=== PATIENT | male | born 1990 ===

== ENCOUNTER 2024-05-10 23:43 | Emergency (ER) | payer OTHER, SELFPAY ==
[2024-05-10 23:48] VITALS: BP 146/78; PULSE 84; RESP 16; TEMP 36.2; O2SAT 99; BMI 26.5
--- NOTE | 2024-05-11 00:50 | ED.WEAKNESS ---
HPI - Weakness General Date Seen: 05/11/24 Chief complaint: Weakness Stated complaint: weakness Time Seen by Provider: 05/11/24 00:00 Source: patient Mode of arrival: ambulatory Limitations: no limitations History of Present Illness HPI Narrative: Patient is a 33-year-old male with a history of breast cancer that is in remission presenting to the emergency department for multiple complaints. He states he was concerned because he was feeling weak this evening and took his temperature multiple times and noticed every time it was in the 95 range. He used 3 different thermometers. After this is when he was started noticing he was feeling weak. He thinks his symptoms are starting to improve at this time. Denies symptoms like this before. Also states she is very susceptible to heat exhaustion and was feeling like he was dehydrated. He was on the way to get Pedialyte when he is feeling weaker so he decided to come to the emergency department instead. Is also complaining about neck pain that started this evening when he was carrying a Dehumidifier. Denies chest pain, shortness of breath, abdominal pain, headache, vision changes, numbness, diarrhea, constipation. Related Data Home Medications ?Medication ?Instructions ?Recorded ?Confirmed dextroamphetamine-amphetamine 30 60 mg feeding tube DAILY 05/10/24 05/10/24 mg tablet (Adderall) Allergies Allergy/AdvReac Type Severity Reaction Status Date / Time No Known Drug Allergies Allergy Verified 05/10/24 23:54 Review of Systems Status of ROS: Reports: 10 or more systems reviewed and unremarkable except as noted in History and below Exam Narrative: Exam Narrative: Const: Well-nourished, Well-developed, in mild distress Eyes: PERRL, no conjunctival injection, and symmetrical lids HENT: Atraumatic external nose and ears. Moist mucous membranes. Neck: Symmetric, trachea midline, No thyromegaly. CVS: RRR, No murmurs or gallops. Peripheral pulses 2+ and equal in all extremities RESP: Unlabored respiratory effort. Clear to auscultation bilaterally. GI: Nontender/Nondistended, No rebound or guarding. MSK:Extremities w/o deformity, Normal Active ROM Skin: Warm, Dry. No rashes or lesions. Neuro: Normal Muscle tone, No focal neurological deficits. Psych: Awake, Alert, & Oriented x3. Appropriate mood and affect. Const: Vital Signs, click to edit/add: Vital Signs - 24 hr 05/10/24 23:48 Temperature 97.2 F L Pulse Rate [Left P ulse Oximeter] 84 Respiratory Rate 16 Blood Pressure [Ri ght Upper Arm] 146/78 H Pulse Oximetry 99 Oxygen Delivery Me thod Room Air Course Vital Signs Vital signs: Initial Vital Signs Temperature 97.2 F L 05/10/24 23:48 Temperature Source Temporal Artery Scan 05/10/24 23:48 Pulse Rate 84 05/10/24 23:48 Pulse Rhythm Regular 05/10/24 23:48 Respiratory Rate 16 05/10/24 23:48 Blood Pressure 146/78 H 05/10/24 23:48 Blood Pressure Mean 100 05/10/24 23:48 Blood Pressure Position Sitting 05/10/24 23:48 Pulse Oximetry 99 05/10/24 23:48 Oxygen Delivery Method Room Air 05/10/24 23:48 Vital Signs Temperature 97.2 F L 05/10/24 23:48 Pulse Rate 84 05/10/24 23:48 Respiratory Rate 16 05/10/24 23:48 Blood Pressure 146/78 H 05/10/24 23:48 Pulse Oximetry 99 05/10/24 23:48 Oxygen Delivery Method Room Air 05/10/24 23:48 Temperature 97.2 F L 05/10/24 23:48 Pulse Rate 84 05/10/24 23:48 Respiratory Rate 16 05/10/24 23:48 Blood Pressure 146/78 H 05/10/24 23:48 Pulse Oximetry 99 05/10/24 23:48 Oxygen Delivery Method Room Air 05/10/24 23:48 MDM - Weakness MDM Narrative Medical decision making narrative: Patient is a 33-year-old male presenting for multiple complaints. His main complaint was the low temperature and the weakness. His temperature is now 97.2 which he states is normal for him. I offered him lab work and a L of fluids for rehydration but he declined at this time. States he is feeling better and believes it would be unnecessary. Considering he has the history of breast cancer I did consider brain Mets but this seems very unlikely considering he has a generalized weakness without any focal deficits. He does see a primary care provider regularly who checks his labs. At this time I believe he is safe for discharge. He is agreeable to this plan. Discharge Plan Discharge Clinical Impression: Weakness Patient Disposition: Home, Self-Care Condition: Stable Additional Instructions: Vitals are non concerning at this time. I am not sure what caused your lower temperature earlier in the day but it is back to your baseline. Make sure to follow-up with your primary care provider. Prescriptions: No Action dextroamphetamine-amphetamine [Adderall] 30 mg tablet 60 mg feeding tube DAILY Stand Alone Forms: Home Team Therapy Info Instructions
== END 2024-05-11 01:13 | disposition home or self-care (01) ==
LOC: ED 05-11 01:11
PROVIDERS: Emergency Provider Student in an Organized Health Care Education/Training Program
DX: R53.1 Weakness (principal)
CPT/HCPCS: 99282